=== PATIENT | male | born 1960 | race Caucasian/White ===

== ENCOUNTER 2019-02-02 17:42 | Inpatient (IN) | payer OTHER ==
[~2019-02-02] VITALS: Ht 177.8 cm; Wt 110.0 kg
[~2019-02-02 17:42] MED LIST: CIPR500T87 PO; METR500T PO
[2019-02-02] MEDS ORDERED: SODIUM CHLORIDE FLUSH 10ML SYR IVF ONE (18:00)
[2019-02-02] MEDS ORDERED: ONDANSETRON 2MG/ML, 2ML IVPush ONE (18:00)
--- NOTE | 2019-02-02 18:15 | NUR ---
PATIENT PRESENTS TO ED TODAY FOR ABD PAIN AND N/V, PATIENT ADMITTED THURS FOR DIVERTICULITIS, DC'D ON SAT. LABS DRAWN, AWAITING CT AND XRAY. CALL LIGHT WITHIN REACH. WARM BLANKET PROVIDED, FRIEND AT BEDSIDE.
--- NOTE | 2019-02-02 18:18 | NUR ---
PATIENT PROVIDED URINAL, UNABLE TO URINATE AT THIS TIME.
[2019-02-02 18:45] LABS: BASOPHILS # (AUTO) 0.03 x10^3/uL (0-0.1); BASOPHILS % (AUTO) 0 % (0-1); EOSINOPHILS # (AUTO) 0.05 x10^3/uL (0-0.4); EOSINOPHILS % (AUTO) 0 % (1-7); LYMPHOCYTES # (AUTO) 1.18 x10^3/uL (1-3.4); LYMPHOCYTES % (AUTO) 8 % (22-44); MD NO; MEAN CORPUSCULAR HEMOGLOBIN 29.1 pg (27.5-34.5); MEAN CORPUSCULAR HGB CONC 32.8 g/dL (33.2-36.2); MEAN CORPUSCULAR VOLUME 88.7 fL (81-97); MEAN PLATELET VOLUME 8.1 fL (7.4-10.4); MONOCYTES # (AUTO) 1.03 x10^3/uL (0.2-0.8); MONOCYTES % (AUTO) 7 % (2-9); NEUTROPHILS # (AUTO) 13.29 x10^3/uL (1.8-6.8); NEUTROPHILS % (AUTO) 85 % (42-75); PLATELET COUNT 459 x10^3/uL (130-400); RED BLOOD COUNT 5.64 x10^6/uL (4.38-5.82); RED CELL DISTRIBUTION WIDTH 13.7 % (9.4-14.8)
[2019-02-02] MEDS ORDERED: ONDANSETRON 2MG/ML, 2ML ONE ×2 (18:47→21:39)
[2019-02-02] MEDS ORDERED: HYDROmorphone 2 MG/ML, 1ML ONE ×2 (18:47→19:57)
[2019-02-02] MEDS: HYDROmorphone 2 MG/ML, 1ML IVPush PRN ×2 (18:51→20:00)
[2019-02-02 18:56] LABS: CHLORIDE 104 mmol/L (98-107)
[2019-02-02 19:01] LABS: ALANINE AMINOTRANSFERASE 54 U/L (12-78); ALBUMIN 3.4 g/dL (3.4-5.0); ALKALINE PHOSPHATASE 115 U/L (45-117); ANION GAP 10 mmol/L (5-15); BILIRUBIN,TOTAL 0.5 mg/dL (0.2-1.0); CALCIUM 9.1 mg/dL (8.5-10.1); CREATININE 1.23 mg/dL (0.7-1.3); TOTAL PROTEIN 7.8 g/dL (6.4-8.2)
--- NOTE | 2019-02-02 19:13 | NUR ---
TASK RN: DEEPA (FRIEND) [phone] IS LEAVING BEDSIDE. PLEASE CONTACT IF NEEDED.
[2019-02-02] MEDS ORDERED: OMNIPAQUE 350 MG/ML, 100ML BOTTLE ONE (19:30)
[2019-02-02] MEDS ORDERED: CEFOTETAN PMX 1GM/50ML 50 ML IV ONE (20:00)
[2019-02-02] MEDS ORDERED: METRONIDAZOLE PMX 500MG/100ML 100 ML IVPB ONE (20:00)
--- NOTE | 2019-02-02 20:01 | NUR ---
LAST DRINK 8 HRS AGO, NO RECENT DRINK/FOOD. VS UPDATED IN CHART, PATIENT TO GO TO OR, PATIENT UPDATED ON POC. AWAITING REPORT TO OR. NO ADDITIONAL NEEDS AT THIS TIME, BLOOD CULTURES TO BE DRAWN PER ERP PRIOR TO ABX ADMINISTRATION. AWAITING LAB. PATIENT REPORTS PAIN FROM 06/17 NOW 03/17, PAIN MEDICATION ADMINISTERED PER ORDER.
--- NOTE | 2019-02-02 20:27 | NUR ---
REPORT TO OR, HOLD NG TUBE PER RAYA CASILLAS RN. BLOOD CULTURES DRAWN X 2, ABX ADMINISTERED AFTER BLOOD CULTURE DRAW, SURGEON AT BEDSIDE. AWAITING OR TO TRANSPORT UPSTAIRS AFTERWARDS.
[2019-02-02] MEDS ORDERED: CEFOTETAN PMX 1GM/50ML 50 ML ONE ×2 (20:28→21:39)
--- NOTE | 2019-02-02 20:39 | NUR ---
PATIENT BEING TRANSFERRED TO OR AT THIS TIME.
[2019-02-02] MEDS ORDERED: FENTANYL PF 250 MCG/5ML ONE (20:52)
[2019-02-02] MEDS ORDERED: MIDAZOLAM 1 MG/ML, 2ML ONE ×2 (20:52→22:50)
[2019-02-02] MEDS ORDERED: PHENYLEPHRINE 10 MG/ML ONE (21:02)
[2019-02-02] MEDS ORDERED: SODIUM CHLORIDE FLUSH 10ML SYR IVF PRN (21:30)
[2019-02-02] MEDS ORDERED: SUCCINYLCHOLINE 20 MG/ML, 10ML ONE (21:39)
[2019-02-02] MEDS ORDERED: NEOSTIGMINE 1 MG/ML, 10ML ONE (21:39)
[2019-02-02] MEDS ORDERED: ROCURONIUM 10MG/ML,5ML ONE (21:39)
[2019-02-02] MEDS ORDERED: DEXAMETHASONE 4 MG/ML, 1ML ONE (21:39)
[2019-02-02] MEDS ORDERED: PROPOFOL 10 MG/ML, 20ML ONE (21:39)
[2019-02-02] MEDS ORDERED: GLYCOPYRROLATE 0.2MG/1ML, 5ML ONE (21:39)
[2019-02-02] MEDS ORDERED: CEFAZOLIN 1,000 MG ONE (21:39)
[2019-02-02] MEDS ORDERED: PROPRANOLOL ONE (22:35)
[2019-02-02] MEDS ORDERED: FENTANYL PF 100 MCG/2ML ONE (22:51)
[2019-02-02] MEDS ORDERED: LIDOCAINE-MPF 1%, 2ML ENDO PRN (23:00)
[2019-02-02] MEDS ORDERED: PHARMACY MAY ADJ FOR RENAL FX MC SCH (23:00)
[2019-02-02] MEDS ORDERED: ACETAMINOPHEN 650 MG/20.3 ML UDC NG PRN (23:00)
[2019-02-02] MEDS ORDERED: PROPOFOL 100 ML IV ONE (23:33)
[2019-02-03] MEDS: PIPERACILLIN/TAZO/PMX 3.375GM 50 ML IV SCH ×4 (00:34→19:54)
[2019-02-03] MEDS: FENTANYL PF 100 MCG/2ML IVPush PRN ×4 (00:34→08:58)
[2019-02-03] MEDS: POTASSIUM CHLORIDE 40 MEQ in SODIUM CHLORIDE 0.9% 1,000 ML IV SCH ×3 (00:34→15:30)
[2019-02-03] MEDS: ENOXAPARIN 40 MG/0.4 ML SQ SCH (00:34)
[2019-02-03] MEDS: PROPOFOL 100 ML IV PRN ×2 (00:35→06:24)
[2019-02-03 01:26] LABS: MICROSCOPIC INDICATED
[2019-02-03 01:34] VITALS: BP 118/62
[2019-02-03 01:40] LABS: CULTURE INDICATED? NO
[2019-02-03] MEDS ORDERED: SODIUM CHLORIDE 0.9% 1,000ML IVBOLUS ONE (03:00)
[2019-02-03 04:03] VITALS: BP 102/64
[2019-02-03 04:34] LABS: BASOPHILS # (AUTO) 0.03 x10^3/uL (0-0.1); BASOPHILS % (AUTO) 0 % (0-1); EOSINOPHILS # (AUTO) 0.01 x10^3/uL (0-0.4); EOSINOPHILS % (AUTO) 0 % (1-7); LYMPHOCYTES # (AUTO) 0.89 x10^3/uL (1-3.4); LYMPHOCYTES % (AUTO) 7 % (22-44); MD NO; MEAN CORPUSCULAR HEMOGLOBIN 28.8 pg (27.5-34.5); MEAN CORPUSCULAR HGB CONC 32.3 g/dL (33.2-36.2); MEAN CORPUSCULAR VOLUME 89.1 fL (81-97); MONOCYTES # (AUTO) 1.05 x10^3/uL (0.2-0.8); MONOCYTES % (AUTO) 8 % (2-9); NEUTROPHILS # (AUTO) 11.15 x10^3/uL (1.8-6.8); NEUTROPHILS % (AUTO) 85 % (42-75); PLATELET COUNT 378 x10^3/uL (130-400); RED BLOOD COUNT 5.05 x10^6/uL (4.38-5.82); RED CELL DISTRIBUTION WIDTH 13.8 % (9.4-14.8)
[2019-02-03 04:46] LABS: ANION GAP 9 mmol/L (5-15); CALCIUM 7.3 mg/dL (8.5-10.1); CHLORIDE 110 mmol/L (98-107); CREATININE 1.07 mg/dL (0.7-1.3)
[2019-02-03] MEDS: PANTOPRAZOLE 40 MG IV IV SCH (07:51)
[2019-02-03] MEDS ORDERED: HYDROmorphone 2 MG/ML, 1ML ONE (08:47)
[2019-02-03] MEDS ORDERED: FENTANYL PF 2,500 MCG in SODIUM CHLORIDE 0.9% 200 ML IV PRN (09:00)
[2019-02-03] MEDS ORDERED: MAGNESIUM SULFATE PMX 2GM/50ML 50 ML IV ONE (14:30)
[2019-02-04] MEDS: POTASSIUM CHLORIDE 40 MEQ in SODIUM CHLORIDE 0.9% 1,000 ML IV SCH ×2 (00:16→07:30)
[2019-02-04] MEDS: ENOXAPARIN 40 MG/0.4 ML SQ SCH (00:16)
[2019-02-04] MEDS: PIPERACILLIN/TAZO/PMX 3.375GM 50 ML IV SCH ×4 (01:02→18:39)
[2019-02-04 04:00] VITALS: BP 122/78
[2019-02-04 04:53] LABS: BASOPHILS # (AUTO) 0.02 x10^3/uL (0-0.1); BASOPHILS % (AUTO) 0 % (0-1); EOSINOPHILS # (AUTO) 0.19 x10^3/uL (0-0.4); EOSINOPHILS % (AUTO) 1 % (1-7); LYMPHOCYTES # (AUTO) 1.88 x10^3/uL (1-3.4); LYMPHOCYTES % (AUTO) 14 % (22-44); MD NO; MEAN CORPUSCULAR HEMOGLOBIN 29.2 pg (27.5-34.5); MEAN CORPUSCULAR HGB CONC 32.6 g/dL (33.2-36.2); MEAN CORPUSCULAR VOLUME 89.6 fL (81-97); MEAN PLATELET VOLUME 8.1 fL (7.4-10.4); MONOCYTES # (AUTO) 1.23 x10^3/uL (0.2-0.8); MONOCYTES % (AUTO) 9 % (2-9); NEUTROPHILS % (AUTO) 76 % (42-75); PLATELET COUNT 328 x10^3/uL (130-400); RED BLOOD COUNT 4.52 x10^6/uL (4.38-5.82); RED CELL DISTRIBUTION WIDTH 14.5 % (9.4-14.8)
[2019-02-04 05:03] LABS: ANION GAP 7 mmol/L (5-15); CALCIUM 7.7 mg/dL (8.5-10.1); CHLORIDE 113 mmol/L (98-107); CREATININE 1.19 mg/dL (0.7-1.3)
[2019-02-04] MEDS ORDERED: KETOROLAC 30 MG/1 ML ONE (07:43)
[2019-02-04] MEDS: PANTOPRAZOLE 40 MG IV IV SCH (07:46)
[2019-02-04] MEDS ORDERED: ACETAMINOPHEN 500 MG TABLET PO SCH (09:00)
[2019-02-04] MEDS ORDERED: HYDROcodone/APAP 10/325 MG TABLET ONE (09:59)
[2019-02-04] MEDS: KETOROLAC 30 MG/1 ML IV SCH ×2 (10:02→17:12)
[2019-02-04] MEDS: HYDROcodone/APAP 10/325 MG TABLET PO PRN ×2 (10:02→14:37)
[2019-02-04] MEDS: FENTANYL PF 100 MCG/2ML IVPush PRN ×4 (11:32→20:31)
[2019-02-04 12:00] VITALS: BP 108/74
[2019-02-04 20:02] VITALS: BP 153/93
[2019-02-05] MEDS: ENOXAPARIN 40 MG/0.4 ML SQ SCH (00:53)
[2019-02-05] MEDS: KETOROLAC 30 MG/1 ML IV SCH ×3 (00:53→17:01)
[2019-02-05] MEDS: PIPERACILLIN/TAZO/PMX 3.375GM 50 ML IV SCH ×4 (00:57→19:36)
[2019-02-05 01:09] VITALS: BP 123/77
[2019-02-05 05:34] LABS: BASOPHILS # (AUTO) 0.06 x10^3/uL (0-0.1); BASOPHILS % (AUTO) 0 % (0-1); EOSINOPHILS # (AUTO) 0.49 x10^3/uL (0-0.4); EOSINOPHILS % (AUTO) 4 % (1-7); LYMPHOCYTES # (AUTO) 2.08 x10^3/uL (1-3.4); LYMPHOCYTES % (AUTO) 16 % (22-44); MD NO; MEAN CORPUSCULAR HEMOGLOBIN 29.6 pg (27.5-34.5); MEAN CORPUSCULAR HGB CONC 32.9 g/dL (33.2-36.2); MEAN CORPUSCULAR VOLUME 89.9 fL (81-97); MEAN PLATELET VOLUME 8.2 fL (7.4-10.4); MONOCYTES # (AUTO) 0.86 x10^3/uL (0.2-0.8); MONOCYTES % (AUTO) 7 % (2-9); NEUTROPHILS # (AUTO) 9.21 x10^3/uL (1.8-6.8); NEUTROPHILS % (AUTO) 73 % (42-75); PLATELET COUNT 345 x10^3/uL (130-400); RED BLOOD COUNT 3.99 x10^6/uL (4.38-5.82)
[2019-02-05 05:47] LABS: ALANINE AMINOTRANSFERASE 19 U/L (12-78); ANION GAP 3 mmol/L (5-15); CHLORIDE 109 mmol/L (98-107)
[2019-02-05 05:49] LABS: ALKALINE PHOSPHATASE 62 U/L (45-117); BILIRUBIN,TOTAL 0.4 mg/dL (0.2-1.0); TOTAL PROTEIN 5.7 g/dL (6.4-8.2)
[2019-02-05] MEDS: D5%-0.45NACL+KCL 20MEQ 1,000 ML IV SCH ×2 (07:25→22:00)
[2019-02-05 08:05] VITALS: BP 143/82
[2019-02-05] MEDS ORDERED: ONDANSETRON 2MG/ML, 2ML ONE (08:46)
[2019-02-05] MEDS ORDERED: ONDANSETRON 2MG/ML, 2ML IVPush PRN ×2 (09:00→10:30)
[2019-02-05] MEDS: HYDROcodone/APAP 10/325 MG TABLET PO PRN ×4 (09:12→23:53)
[2019-02-05] MEDS: PANTOPRAZOLE 40 MG IV IV SCH (09:12)
[2019-02-05 14:26] VITALS: BP 131/81
[2019-02-05] MEDS: FENTANYL PF 100 MCG/2ML IVPush PRN (14:51)
[2019-02-05] MEDS ORDERED: morphine SULFATE 10 MG/ML, 1ML IVPush PRN (17:00)
[2019-02-05] MEDS: ONDANSETRON 2MG/ML, 2ML IVPush PRN (17:01)
[2019-02-05 19:57] VITALS: BP 105/66
[2019-02-06 01:05] VITALS: BP 117/72
[2019-02-06] MEDS: KETOROLAC 30 MG/1 ML IV SCH ×3 (01:08→17:19)
[2019-02-06] MEDS: ENOXAPARIN 40 MG/0.4 ML SQ SCH (01:09)
[2019-02-06] MEDS: PIPERACILLIN/TAZO/PMX 3.375GM 50 ML IV SCH ×4 (01:09→19:25)
[2019-02-06] MEDS: D5%-0.45NACL+KCL 20MEQ 1,000 ML IV SCH ×2 (01:19→23:00)
[2019-02-06 04:20] LABS: BASOPHILS # (AUTO) 0.07 x10^3/uL (0-0.1); BASOPHILS % (AUTO) 1 % (0-1); EOSINOPHILS # (AUTO) 0.78 x10^3/uL (0-0.4); EOSINOPHILS % (AUTO) 7 % (1-7); LYMPHOCYTES # (AUTO) 2.42 x10^3/uL (1-3.4); LYMPHOCYTES % (AUTO) 23 % (22-44); MD NO; MEAN CORPUSCULAR HEMOGLOBIN 29.3 pg (27.5-34.5); MEAN CORPUSCULAR HGB CONC 32.9 g/dL (33.2-36.2); MEAN CORPUSCULAR VOLUME 89.1 fL (81-97); MONOCYTES # (AUTO) 0.76 x10^3/uL (0.2-0.8); MONOCYTES % (AUTO) 7 % (2-9); NEUTROPHILS # (AUTO) 6.69 x10^3/uL (1.8-6.8); NEUTROPHILS % (AUTO) 62 % (42-75); PLATELET COUNT 373 x10^3/uL (130-400); RED BLOOD COUNT 3.71 x10^6/uL (4.38-5.82); RED CELL DISTRIBUTION WIDTH 14.4 % (9.4-14.8)
[2019-02-06 04:22] LABS: ALANINE AMINOTRANSFERASE 20 U/L (12-78); ANION GAP 2 mmol/L (5-15); CALCIUM 8.4 mg/dL (8.5-10.1); CHLORIDE 109 mmol/L (98-107); CREATININE 1.11 mg/dL (0.7-1.3)
[2019-02-06 04:24] LABS: ALKALINE PHOSPHATASE 62 U/L (45-117); BILIRUBIN,TOTAL 0.3 mg/dL (0.2-1.0); TOTAL PROTEIN 5.8 g/dL (6.4-8.2)
[2019-02-06] MEDS: HYDROcodone/APAP 10/325 MG TABLET PO PRN ×4 (06:06→17:19)
[2019-02-06] MEDS: PANTOPROZOLE 40MG TABLET PO SCH (06:06)
[2019-02-06 07:24] VITALS: BP 104/66
[2019-02-06 14:17] VITALS: BP 139/72
[2019-02-06] MEDS: ONDANSETRON 2MG/ML, 2ML IVPush PRN (17:19)
[2019-02-06 19:17] VITALS: BP 114/74
[2019-02-07] MEDS: ENOXAPARIN 40 MG/0.4 ML SQ SCH (01:05)
[2019-02-07] MEDS: KETOROLAC 30 MG/1 ML IV SCH (01:05)
[2019-02-07] MEDS: PIPERACILLIN/TAZO/PMX 3.375GM 50 ML IV SCH ×4 (01:05→19:14)
[2019-02-07 01:17] VITALS: BP 124/79
[2019-02-07] MEDS: PANTOPROZOLE 40MG TABLET PO SCH (06:39)
[2019-02-07] MEDS: D5%-0.45NACL+KCL 20MEQ 1,000 ML IV SCH ×3 (06:39→23:00)
[2019-02-07 06:56] VITALS: BP 139/79
[2019-02-07 09:25] LABS: ALANINE AMINOTRANSFERASE 32 U/L (12-78); ALBUMIN 2.2 g/dL (3.4-5.0); ANION GAP 3 mmol/L (5-15); CALCIUM 8.5 mg/dL (8.5-10.1); CHLORIDE 107 mmol/L (98-107); CREATININE 1.07 mg/dL (0.7-1.3)
[2019-02-07 09:28] LABS: ALKALINE PHOSPHATASE 155 U/L (45-117); BILIRUBIN,TOTAL 0.4 mg/dL (0.2-1.0); TOTAL PROTEIN 6.1 g/dL (6.4-8.2)
[2019-02-07 09:35] LABS: BASOPHILS # (AUTO) 0.07 x10^3/uL (0-0.1); BASOPHILS % (AUTO) 1 % (0-1); EOSINOPHILS # (AUTO) 0.68 x10^3/uL (0-0.4); EOSINOPHILS % (AUTO) 9 % (1-7); LYMPHOCYTES # (AUTO) 1.64 x10^3/uL (1-3.4); LYMPHOCYTES % (AUTO) 21 % (22-44); MD NO; MEAN CORPUSCULAR HEMOGLOBIN 28.2 pg (27.5-34.5); MEAN CORPUSCULAR HGB CONC 31.6 g/dL (33.2-36.2); MEAN PLATELET VOLUME 8.1 fL (7.4-10.4); MONOCYTES # (AUTO) 0.67 x10^3/uL (0.2-0.8); MONOCYTES % (AUTO) 9 % (2-9); NEUTROPHILS # (AUTO) 4.64 x10^3/uL (1.8-6.8); NEUTROPHILS % (AUTO) 60 % (42-75); PLATELET COUNT 404 x10^3/uL (130-400); RED BLOOD COUNT 4.14 x10^6/uL (4.38-5.82); RED CELL DISTRIBUTION WIDTH 14.3 % (9.4-14.8)
[2019-02-07] MEDS: HYDROcodone/APAP 10/325 MG TABLET PO PRN ×3 (12:29→19:14)
[2019-02-07 12:41] VITALS: BP 123/78
[2019-02-07 20:56] VITALS: BP 125/69
[2019-02-07] MEDS: ONDANSETRON 2MG/ML, 2ML IVPush PRN (22:22)
[2019-02-08] MEDS: ENOXAPARIN 40 MG/0.4 ML SQ SCH (00:53)
[2019-02-08] MEDS: PIPERACILLIN/TAZO/PMX 3.375GM 50 ML IV SCH ×2 (00:53→07:35)
[2019-02-08 03:54] VITALS: BP 126/73
[2019-02-08 05:52] LABS: BASOPHILS # (AUTO) 0.08 x10^3/uL (0-0.1); BASOPHILS % (AUTO) 1 % (0-1); EOSINOPHILS # (AUTO) 0.61 x10^3/uL (0-0.4); EOSINOPHILS % (AUTO) 7 % (1-7); LYMPHOCYTES # (AUTO) 2.18 x10^3/uL (1-3.4); LYMPHOCYTES % (AUTO) 26 % (22-44); MD NO; MEAN CORPUSCULAR HEMOGLOBIN 28.9 pg (27.5-34.5); MEAN CORPUSCULAR HGB CONC 32.6 g/dL (33.2-36.2); MEAN CORPUSCULAR VOLUME 88.7 fL (81-97); MEAN PLATELET VOLUME 8.1 fL (7.4-10.4); MONOCYTES % (AUTO) 11 % (2-9); NEUTROPHILS # (AUTO) 4.73 x10^3/uL (1.8-6.8); NEUTROPHILS % (AUTO) 56 % (42-75); PLATELET COUNT 364 x10^3/uL (130-400); RED BLOOD COUNT 4.03 x10^6/uL (4.38-5.82); RED CELL DISTRIBUTION WIDTH 14.2 % (9.4-14.8)
[2019-02-08 05:54] LABS: CHLORIDE 108 mmol/L (98-107)
[2019-02-08] MEDS: PANTOPROZOLE 40MG TABLET PO SCH (06:00)
[2019-02-08 06:02] LABS: ANION GAP 5 mmol/L (5-15); CALCIUM 8.4 mg/dL (8.5-10.1); CREATININE 1.09 mg/dL (0.7-1.3)
[2019-02-08] MEDS: D5%-0.45NACL+KCL 20MEQ 1,000 ML IV SCH (06:59)
[2019-02-08 07:10] VITALS: BP 130/75
[2019-02-08] MEDS ORDERED: ACETAMINOPHEN 650 MG/20.3 ML UDC NG PRN (09:00)
[2019-02-08] MEDS ORDERED: ERTAPENEM 1 GM in SODIUM CHLORIDE 0.9% 50 ML IV SCH (10:00)
[2019-02-08] MEDS ORDERED: AMOX1TAB64 PO (10:31)
== END 2019-02-08 11:30 | disposition home health service (06) | DRG 853 ==
LOC: ED 18:42 → EDIP 21:11 → CCU 23:49 → 4NOR 02-04 11:19 → DCLOUNGE 02-08 11:03
PROVIDERS: ADMIT Surgery; ATTEND Surgery
PROC: 0D1B0Z4 Bypass Ileum to Cutaneous, Open Approach (ICD-10-PCS; 2019-02-02)
PROC: 0DBU0ZZ Excision of Omentum, Open Approach (ICD-10-PCS; 2019-02-02)
PROC: 0D9 Gastrointestinal System, Drainage (ICD-10-PCS; 2019-02-02)
PROC: 03HY32Z Insertion of Monitoring Device into Upper Artery, Percutaneous Approach (ICD-10-PCS; 2019-02-02)
PROC: 02HV33Z Insertion of Infusion Device into Superior Vena Cava, Percutaneous Approach (ICD-10-PCS; 2019-02-02)
PROC: B548ZZA Ultrasonography of Superior Vena Cava, Guidance (ICD-10-PCS; 2019-02-02)
PROC: 5A1935Z Respiratory Ventilation, Less than 24 Consecutive Hours (ICD-10-PCS; 2019-02-02)
PROC: 0BH17EZ Insertion of Endotracheal Airway into Trachea, Via Natural or Artificial Opening (ICD-10-PCS; 2019-02-02)
PROC: 0DBN0ZZ Excision of Sigmoid Colon, Open Approach (ICD-10-PCS; principal; 2019-02-02 21:00)
DX: A41.9 Sepsis, unspecified organism (principal); J96.00 Acute respiratory failure, unspecified whether with hypoxia or hypercapnia; K65.0 Generalized (acute) peritonitis; K66.1 Hemoperitoneum; K56.609 Unspecified intestinal obstruction, unspecified as to partial versus complete obstruction; K59.39 Other megacolon; J98.11 Atelectasis; K57.20 Diverticulitis of large intestine with perforation and abscess without bleeding; E87.6 Hypokalemia; D64.9 Anemia, unspecified; N28.1 Cyst of kidney, acquired; Z90.49 Acquired absence of other specified parts of digestive tract
CPT/HCPCS: 36415; 36600; 99285; J1800; 71045; 74177; 80048; 80053; 81001; 82330; 82803; 82947; 83690; 83735; 84100; 84132; 84295; 84478; 85014; 85025; 87040; 87070; 87075; 87081; 87205; 88307; 93005; 94002; 94003; 94150; 94640; 96374; G0378; J0690; J1100; J1170; J1335; J1650; J1885; J2250; J2405; J2543; J2704; J2710; J3010; J3480; Q9967; C9113; J0330; J2270; J2370; J3475; J3490; J7030; J7050

== ENCOUNTER 2019-07-21 08:15 | Inpatient (IN) | payer OTHER ==
[~2019-07-21] VITALS: Ht 177.8 cm; Wt 104.9 kg
[~2019-07-21 08:15] MED LIST changes: +AMOX1TAB64 PO; +CETI10CA PO; +IBUP1TAB11 PO; +MULT-658 PO; +TAMS-11 PO
[2019-07-21] MEDS ORDERED: LACTATED RINGERS 1,000 ML IV SCH (08:55)
[2019-07-21] MEDS ORDERED: LIDOCAINE-MPF 1%, 2ML INFIL ONE (09:00)
[2019-07-21] MEDS ORDERED: SCOPOLAMINE PATCH, 1.5MG PATCH.TD72 TD ONE (09:00)
[2019-07-21] MEDS ORDERED: ACETAMINOPHEN 500 MG TABLET PO ONE (09:00)
[2019-07-21] MEDS ORDERED: GABAPENTIN 300 MG CAPSULE PO ONE (09:00)
[2019-07-21] MEDS ORDERED: DIAZEPAM 5 MG TABLET PO ONE (09:00)
[2019-07-21 09:13] VITALS: BP 108/67
[2019-07-21 10:16] LABS: BASOPHILS # (AUTO) 0.04 x10^3/uL (0-0.1); BASOPHILS % (AUTO) 1 % (0-1); EOSINOPHILS # (AUTO) 0.11 x10^3/uL (0-0.4); EOSINOPHILS % (AUTO) 2 % (1-7); LYMPHOCYTES # (AUTO) 1.99 x10^3/uL (1-3.4); LYMPHOCYTES % (AUTO) 27 % (22-44); MD NO; MEAN CORPUSCULAR HEMOGLOBIN 29.5 pg (27.5-34.5); MEAN CORPUSCULAR HGB CONC 33.4 g/dL (33.2-36.2); MEAN CORPUSCULAR VOLUME 88.1 fL (81-97); MONOCYTES # (AUTO) 0.57 x10^3/uL (0.2-0.8); MONOCYTES % (AUTO) 8 % (2-9); NEUTROPHILS # (AUTO) 4.61 x10^3/uL (1.8-6.8); NEUTROPHILS % (AUTO) 63 % (42-75); PLATELET COUNT 277 x10^3/uL (130-400); RED BLOOD COUNT 6.03 x10^6/uL (4.38-5.82); RED CELL DISTRIBUTION WIDTH 13.3 % (9.4-14.8)
[2019-07-21 10:17] LABS: ALANINE AMINOTRANSFERASE 57 U/L (12-78); ALBUMIN 4.6 g/dL (3.4-5.0); ANION GAP 8 mmol/L (5-15); CALCIUM 9.5 mg/dL (8.5-10.1); CHLORIDE 103 mmol/L (98-107); CREATININE 1.51 mg/dL (0.7-1.3)
[2019-07-21 10:21] LABS: ALKALINE PHOSPHATASE 119 U/L (45-117); BILIRUBIN,TOTAL 0.9 mg/dL (0.2-1.0)
[2019-07-21] MEDS ORDERED: MIDAZOLAM 1 MG/ML, 2ML ONE (12:07)
[2019-07-21] MEDS ORDERED: DEXAMETHASONE 4 MG/ML, 1ML ONE ×2 (12:08→12:09)
[2019-07-21] MEDS ORDERED: FENTANYL PF 250 MCG/5ML ONE (12:08)
[2019-07-21] MEDS ORDERED: CEFOTETAN PMX 2GM/50ML 50 ML ONE (12:08)
[2019-07-21] MEDS ORDERED: PROPOFOL 10 MG/ML, 20ML ONE (12:09)
[2019-07-21] MEDS ORDERED: ROCURONIUM 10 MG/ML,10ML ONE (12:50)
[2019-07-21] MEDS ORDERED: EPHEDRINE 50 MG/ML, 1ML ONE (12:50)
[2019-07-21] MEDS ORDERED: FENTANYL PF 100 MCG/2ML ONE ×2 (13:55→14:49)
[2019-07-21] MEDS ORDERED: ALBUTEROL SULFATE 2.5 MG/3 ML NPPB PRN (14:00)
[2019-07-21] MEDS ORDERED: DIAZEPAM 5 MG/ML, 2ML IVPush PRN (14:00)
[2019-07-21] MEDS ORDERED: HALOPERIDOL 5 MG/ML IV PRN (14:00)
[2019-07-21] MEDS ORDERED: HYDROmorphone 2 MG/ML, 1ML IVPush PRN (14:00)
[2019-07-21] MEDS ORDERED: ONDANSETRON ODT 8 MG PO PRN (14:00)
[2019-07-21] MEDS ORDERED: PROMETHAZINE 25 MG/ML, 1ML IV PRN (14:00)
[2019-07-21] MEDS ORDERED: MIDAZOLAM 1 MG/ML, 2ML IV PRN (14:00)
[2019-07-21] MEDS ORDERED: ONDANSETRON 2MG/ML, 2ML IV PRN ×2 (14:00→17:00)
[2019-07-21] MEDS ORDERED: OXYcodone 5 MG/5 ML ORAL.SOL UDC PO PRN (14:00)
[2019-07-21] MEDS ORDERED: LABETALOL 5MG/ML, 20ML IV PRN (14:00)
[2019-07-21] MEDS ORDERED: hydrALAzine 20 MG/ML, 1ML IV PRN (14:00)
[2019-07-21] MEDS ORDERED: EPHEDRINE 50 MG/ML, 1ML IVPush PRN (14:00)
[2019-07-21] MEDS ORDERED: PROMETHAZINE 12.5 MG SUPP PR PRN (14:00)
[2019-07-21] MEDS ORDERED: MEPERIDINE/PF 25MG/ML,1ML IVPush PRN (14:00)
[2019-07-21] MEDS ORDERED: SUGAMMADEX 200 MG/2 ML IVPush ONE (14:14)
[2019-07-21] MEDS ORDERED: ONDANSETRON 2MG/ML, 2ML ONE ×2 (14:15)
[2019-07-21] MEDS ORDERED: KETOROLAC 30 MG/1 ML ONE (14:23)
[2019-07-21] MEDS ORDERED: OXYcodone 5 MG/5 ML ORAL.SOL UDC ONE (14:49)
[2019-07-21] MEDS: FENTANYL PF 100 MCG/2ML IV PRN ×2 (15:00→15:20)
[2019-07-21] MEDS ORDERED: HYDROmorphone 1 MG/ML, 1ML VIAL ONE (16:00)
[2019-07-21] MEDS ORDERED: LORazepam 1MG TABLET PO PRN (17:00)
[2019-07-21] MEDS ORDERED: TRAZODONE 50MG TABLET PO PRN (17:00)
[2019-07-21] MEDS ORDERED: SCOPOLAMINE PATCH, 1.5MG PATCH.TD72 TD PRN (17:00)
[2019-07-21] MEDS ORDERED: DIPHENHYDRAMINE 50 MG/ML, 1ML IVPush PRN (17:00)
[2019-07-21] MEDS ORDERED: HALOPERIDOL 5 MG/ML IVPush PRN (17:00)
[2019-07-21] MEDS ORDERED: MORPHINE SULFATE 4 MG/ML, 1ML IVPush PRN (17:00)
[2019-07-21] MEDS ORDERED: DEXAMETHASONE 4 MG/ML, 1ML IVPush PRN (17:00)
[2019-07-21] MEDS ORDERED: LORazepam 2 MG/ML, 1ML IVPush PRN (17:00)
[2019-07-21] MEDS ORDERED: CALCIUM CARBONATE 500 MG TAB.CHEW PO PRN (17:00)
[2019-07-21] MEDS ORDERED: DIPHENHYDRAMINE 25 MG CAPSULE PO PRN (17:00)
[2019-07-21] MEDS: ACETAMINOPHEN 500 MG TABLET PO SCH ×2 (17:28→22:59)
[2019-07-21] MEDS ORDERED: OXYcodone IR 5MG TABLET PO PRN (17:30)
[2019-07-21] MEDS: D5%-0.45NACL+KCL 20MEQ 1,000 ML IV SCH (19:27)
[2019-07-21 19:28] VITALS: BP 108/69
[2019-07-22 01:43] VITALS: BP 110/67
[2019-07-22] MEDS: OXYcodone IR 5MG TABLET PO PRN ×5 (04:16→21:37)
[2019-07-22] MEDS: ACETAMINOPHEN 500 MG TABLET PO SCH ×3 (05:09→18:22)
[2019-07-22 05:14] LABS: BASOPHILS # (AUTO) 0.03 x10^3/uL (0-0.1); BASOPHILS % (AUTO) 0 % (0-1); EOSINOPHILS # (AUTO) 0.06 x10^3/uL (0-0.4); EOSINOPHILS % (AUTO) 0 % (1-7); LYMPHOCYTES # (AUTO) 1.24 x10^3/uL (1-3.4); LYMPHOCYTES % (AUTO) 9 % (22-44); MD NO; MEAN CORPUSCULAR HEMOGLOBIN 30.5 pg (27.5-34.5); MEAN CORPUSCULAR HGB CONC 33.8 g/dL (33.2-36.2); MEAN CORPUSCULAR VOLUME 90.1 fL (81-97); MEAN PLATELET VOLUME 8.1 fL (7.4-10.4); MONOCYTES # (AUTO) 0.88 x10^3/uL (0.2-0.8); MONOCYTES % (AUTO) 7 % (2-9); NEUTROPHILS # (AUTO) 11.16 x10^3/uL (1.8-6.8); NEUTROPHILS % (AUTO) 84 % (42-75); PLATELET COUNT 259 x10^3/uL (130-400); RED BLOOD COUNT 4.99 x10^6/uL (4.38-5.82); RED CELL DISTRIBUTION WIDTH 12.9 % (9.4-14.8)
[2019-07-22 05:22] LABS: ANION GAP 7 mmol/L (5-15); CALCIUM 8.4 mg/dL (8.5-10.1); CHLORIDE 103 mmol/L (98-107); CREATININE 1.79 mg/dL (0.7-1.3)
[2019-07-22 07:50] VITALS: BP 115/53
[2019-07-22] MEDS: TAMSULOSIN 0.4 MG CAP.ER.24H PO SCH (07:56)
[2019-07-22] MEDS: CETIRIZINE 10 MG TABLET PO SCH (07:57)
[2019-07-22] MEDS: D5%-0.45NACL+KCL 20MEQ 1,000 ML IV SCH (10:18)
[2019-07-22 13:58] VITALS: BP 100/65
[2019-07-22] MEDS: ENOXAPARIN 40 MG/0.4 ML SQ SCH (14:56)
[2019-07-22 20:10] VITALS: BP 104/67
[2019-07-23] MEDS: ACETAMINOPHEN 500 MG TABLET PO SCH ×4 (00:30→16:32)
[2019-07-23] MEDS: D5%-0.45NACL+KCL 20MEQ 1,000 ML IV SCH ×2 (00:36→14:54)
[2019-07-23] MEDS: OXYcodone IR 5MG TABLET PO PRN ×5 (01:28→16:32)
[2019-07-23 01:46] VITALS: BP 118/81
[2019-07-23 03:33] LABS: BASOPHILS # (AUTO) 0.02 x10^3/uL (0-0.1); BASOPHILS % (AUTO) 0 % (0-1); EOSINOPHILS # (AUTO) 0.14 x10^3/uL (0-0.4); EOSINOPHILS % (AUTO) 1 % (1-7); LYMPHOCYTES # (AUTO) 1.27 x10^3/uL (1-3.4); LYMPHOCYTES % (AUTO) 10 % (22-44); MD NO; MEAN CORPUSCULAR HEMOGLOBIN 29.8 pg (27.5-34.5); MEAN CORPUSCULAR HGB CONC 32.9 g/dL (33.2-36.2); MEAN CORPUSCULAR VOLUME 90.7 fL (81-97); MEAN PLATELET VOLUME 8.2 fL (7.4-10.4); MONOCYTES # (AUTO) 1.07 x10^3/uL (0.2-0.8); MONOCYTES % (AUTO) 8 % (2-9); NEUTROPHILS # (AUTO) 10.39 x10^3/uL (1.8-6.8); NEUTROPHILS % (AUTO) 81 % (42-75); PLATELET COUNT 269 x10^3/uL (130-400); RED BLOOD COUNT 5.18 x10^6/uL (4.38-5.82); RED CELL DISTRIBUTION WIDTH 13.5 % (9.4-14.8)
[2019-07-23 03:45] LABS: ANION GAP 4 mmol/L (5-15); CHLORIDE 103 mmol/L (98-107); CREATININE 1.51 mg/dL (0.7-1.3)
[2019-07-23] MEDS: TAMSULOSIN 0.4 MG CAP.ER.24H PO SCH (07:58)
[2019-07-23] MEDS: CETIRIZINE 10 MG TABLET PO SCH (07:58)
[2019-07-23 08:58] VITALS: BP 96/60
[2019-07-23 13:34] VITALS: BP 113/72
[2019-07-23] MEDS: ENOXAPARIN 40 MG/0.4 ML SQ SCH (14:45)
[2019-07-23] MEDS ORDERED: OXYC-302 PO (16:36)
[2019-07-23 17:00] VITALS: BP 115/70
== END 2019-07-23 17:00 | disposition home or self-care (01) | DRG 330 ==
LOC: ORIP 08:15 → 4NE 16:35
PROVIDERS: ADMIT Surgery; ATTEND Surgery
PROC: 0DSB0ZZ Reposition Ileum, Open Approach (ICD-10-PCS; 2019-07-21)
PROC: 0DNW4ZZ Release Peritoneum, Percutaneous Endoscopic Approach (ICD-10-PCS; 2019-07-21)
PROC: 0WJP4ZZ Inspection of Gastrointestinal Tract, Percutaneous Endoscopic Approach (ICD-10-PCS; principal; 2019-07-21 10:30)
DX: K52.9 Noninfective gastroenteritis and colitis, unspecified (principal); K57.32 Diverticulitis of large intestine without perforation or abscess without bleeding; N40.0 Benign prostatic hyperplasia without lower urinary tract symptoms; E66.01 Morbid (severe) obesity due to excess calories; Z68.33 Body mass index [BMI] 33.0-33.9, adult; K66.0 Peritoneal adhesions (postprocedural) (postinfection)
CPT/HCPCS: 36415; J3490; 80048; 80053; 85025; 88304; C1729; G0378; J1100; J1170; J1650; J1885; J2250; J2405; J2704; J3010; J2060; J2270; J7120